=== PATIENT | female | born 1980 | race Two or more races ===

== ENCOUNTER 2019-05-31 05:30 | Day surgery (SDC) | payer OTHER | END 2019-05-31 17:25 | disposition home or self-care (01) | LOC: CIR.AMB 05:30 | PROVIDERS: Specialist | PROC: 0HUV0JZ Supplement Bilateral Breast with Synthetic Substitute, Open Approach (ICD-10-PCS; 2019-05-31) | PROC: 0H0V0KZ Alteration of Bilateral Breast with Nonautologous Tissue Substitute, Open Approach (ICD-10-PCS; principal; 2019-05-31 07:00) | DX: C50.812 Malignant neoplasm of overlapping sites of left female breast (principal); C50.811 Malignant neoplasm of overlapping sites of right female breast ==